=== PATIENT | male | born 1995 | race Hispanic/Latino ===

== ENCOUNTER 2017-03-19 02:59 | Emergency (ER) | payer SELFPAY ==
[2017-03-19 03:15] VITALS: BP 115/46
--- NOTE | 2017-03-19 04:53 | Emergency Department Report ---
HPI - General Chief Complaint: Extremity Injury, Upper Time Seen by Provider: 03/19/17 04:52 - HPI HPI: Patient reported to the nurse that he has bilateral shoulder pain in triage area but reported to me that he wants to be fed. He said he has shoulder pain from time to time and denies any injury. Denies any pain at present. He said he just wants something to eat. Denies any fever or chills. Denies any nausea or vomiting. Patient is homeless ED Past Medical Hx - Past Medical History Previous Medical History?: No - Surgical History Past Surgical History?: No - Family History Family history: no significant - Social History Smoking Status: Never Smoker Substance Use Type: None - Medications Home Medications: Home Medications Medication Instructions Recorded Confirmed Last Taken Type Acetaminophen [Acetaminophen TAB] 500 mg PO Q12H PRN #12 tablet 03/19/17 Unknown Rx ED Review of Systems ROS: Stated complaint: SHOULDER PAIN Other details as noted in HPI Comment: All other systems reviewed and negative Constitutional: no symptoms reported, other (patient request and to be fed) Respiratory: no symptoms reported Cardiovascular: denies: chest pain, palpitations, edema, syncope Gastrointestinal: denies: nausea, vomiting Musculoskeletal: arthralgia. denies: back pain, joint swelling Skin: denies: rash Neurological: denies: headache Physical Exam - Physical Exam Vital Signs: Vital Signs 03/19/17 03:12 Temperature 98.0 F Pulse Rate 57 L Respiratory 17 Rate Blood Pressure 115/46 O2 Sat by Pulse 99 Oximetry General: This is a 22-year-old male in no acute distress. Physical Exam: Head: Normocephalic, atraumatic Neck: Supple, no C-spine tenderness and full range of motion Lungs: Clear to auscultate bilaterally, no rhonchi wheezes or rales. Cardiovascular: S1, S2. Regular rate rhythm. Negative murmur Extremity: Clubbing, cyanosis or edema. +2 pulses to all extremities. No neurovascular compromise Musculoskeletal: Full range of motion to all extremities, no joint deformities, crepitus or effusion. +5 strength in all extremities. Bilateral shoulder with normal exam. Skin: Clean dry and intact, no rash or lesions. Psych: Normal mood and behavior ED Course Vital Signs 03/19/17 03:12 Temperature 98.0 F Pulse Rate 57 L Respiratory 17 Rate Blood Pressure 115/46 O2 Sat by Pulse 99 Oximetry - Reevaluation(s) Reevaluation #1: 03/19/17 04:59 stable throughout ED stay ED Medical Decision Making - Medical Decision Making ED course: Patient reports to the triage nurse he was having pain in his posterior shoulder without any trauma. He reports to me that he just came here to be fed. Patient is homeless. Normal exam of shoulders. I discussed patient that he will need to follow-up at [facility] for shoulder pain that started been ongoing. Patient discharged home with prescription for Tylenol when necessary. He voiced understanding of discharge instructions. Critical care attestation.: If time is entered above; I have spent that time in minutes in the direct care of this critically ill patient, excluding procedure time. ED Disposition Clinical Impression: Homelessness Arthralgia of shoulder Qualifiers: Laterality: bilateral Qualified Code(s): M25.511 - Pain in right shoulder; M25.512 - Pain in left shoulder; M25.512 - Pain in left shoulder Disposition: DC- TO HOME OR SELFCARE Is pt being admited?: No Does the pt Need Aspirin: No Condition: Stable Instructions: Arthralgia (ED) Additional Instructions: See referral to [facility] and other community Center. Prescriptions: Acetaminophen [Acetaminophen TAB] 500 mg PO Q12H PRN #12 tablet PRN Reason: Pain Referrals: [facility] [Outside] - 3-[address] [facility] [Outside] - 3-5 Days [facility] [Outside] - 3-5 Days [facility] [Outside] - 3-5 Days
== END 2017-03-19 05:14 | disposition home or self-care (01) ==
LOC: ED 02:59
DX: M25.512 Pain in left shoulder (principal); M25.511 Pain in right shoulder; Z59.0 Homelessness
CPT/HCPCS: 99283